=== PATIENT | male | born 1930 | race Caucasian/White ===

== ENCOUNTER 2016-12-19 21:09 | Emergency (ER) | payer BC ==
[~2016-12-19] VITALS: Ht 165.1 cm; Wt 55.3 kg
[~2016-12-19 21:09] MED LIST: CEPH500C2 PO; CHOL100010 PO; CRD4 PO; MULT-506 PO; VITACAP26 PO
[2016-12-19 21:15] VITALS: TEMP 36.2; Ht 165.1 cm; Wt 55.3 kg
[2016-12-19] MEDS ORDERED: DOXA-10 PO (21:39)
[2016-12-19] MEDS ORDERED: CHOL1CAP93 PO (21:39)
[2016-12-19] MEDS ORDERED: LISI10TA PO (21:39)
[2016-12-19] MEDS ORDERED: ASCO10003 PO (21:39)
[2016-12-19] MEDS ORDERED: DIPHTHERIA/TETANUS/PERTUSSIS 0.5 ML SYR/VIAL IM. ONE (21:45)
--- NOTE | 2016-12-19 21:49 | EMERGENCY ROOM VISIT NOTE ---
ED Visit Note First contact with patient: 21:20 Patient was seen by our PA/EXTRUDING PRESS ADJUSTER. I was involved in the patient's care and did evaluate the patient myself. I was involved in the care throughout the ER stay. The patient's dog bite has been addressed. He was felt stable for discharge. He is going to receive a tetanus booster.
[2016-12-19 22:15] VITALS: BP 177/90; PULSE 66; O2SAT 99
--- NOTE | 2016-12-21 | EMERGENCY ROOM VISIT NOTE ---
ED Visit Note First contact with patient: 21:20 Chief Complaint: Dog bit my right knee. History of Present Illness: Mr. Hernandez is an 86-year-old white male who ambulates into the ED complaining of a dog bite on the right knee. Patient reports approximately one to 2 hours ago he was taking his normal evening walk. He walked by a neighbor house and was bitten by their dog. He reports he checked in the dog's rabies immunizations are up-to-date. Patient does report he stopped bleeding prior to arrival at the hospital but has not washed the wound. Currently patient has no complaints including knee pain, skin pain, skin numbness/tingling. Review of Systems: As noted above in history of present illness. Past Medical History: Hypertension. Current Medications: Multivitamins, lisinopril, doxazosin. Allergies to Medications: Patient denies. Social History: Patient is currently retired; patient feels safe in his home environment; patient denies tobacco and alcohol use. Tetanus Immunization Status: Patient believes greater than 10 years. Physical Examination: Vital Signs: Date Time Temp Pulse Resp B/P (MAP) Pulse Ox O2 Delivery O2 Flow Rate FiO2 12/19/16 22:15 66 22 177/90 99 12/19/16 21:15 36.2 75 18 182/84 95 Room Air GENERAL: 86-year-old male in no acute distress, nontoxic-appearing, afebrile and hemodynamically stable. NEUROLOGICAL: Awake, alert and oriented to person, place and time. Answering questions appropriately and following commands. Normal gait. Good hand eye coordination. No focal motor sensory deficits. SKIN: Warm, dry and pink. Right Knee: Over the anterior aspect of the right knee patient has a small superficial puncture wound and abrasion as result of his dog bite. There is no active bleeding. RIGHT LOWER EXTREMITY: No gross bony deformity. Minimal tenderness in the area of his dog bite. There is no local erythema or edema. There is no ecchymosis. He does have full range of motion in flexion and extension of the knee against resistance. Do not appreciate any ligamentous laxity. Negative patellar apprehension test. Negative ballottement test. ED Course: Patient is assessed as noted above. Patient's medication list was reviewed. Patient's wound was cleansed with antibacterial soap and water and a sterile bacitracin dressing was placed over the wound. Patient was given an Adacel booster. Patient was educated about tonight's findings and instructed on his treatment plan; he verbalizes understanding and agreement with this plan. Clinical Impression: Dog bite right knee. Disposition: Patient discharged home in stable condition; prior to departure he was reassessed and subjectively reported pain free. Plan: Comfort measures, wound care, and signs of infection were discussed with the patient. Patient was found to be hypertensive and was encouraged to follow-up with his family physician for recheck and possible medication change. Patient was encouraged to follow-up with personal physician or return ED for signs of infection or any new/concerning symptoms.
== END 2016-12-19 22:16 | disposition home or self-care (01) ==
LOC: C.EDB 21:10 → C.EDD 22:16
DX: S81.051A Open bite, right knee, initial encounter (principal); W54.0XXA Bitten by dog, initial encounter; I10 Essential (primary) hypertension; Z23 Encounter for immunization

== ENCOUNTER 2017-05-24 18:05 | Emergency (ER) | payer BC ==
[~2017-05-24] VITALS: Ht 162.6 cm; Wt 57.0 kg
[~2017-05-24 18:05] MED LIST changes: +ASCO10003 PO; -CEPH500C2 PO; -CHOL100010 PO; +CHOL1CAP93 PO; -CRD4 PO; +DOXA-10 PO; +LISI10TA PO; -VITACAP26 PO
[2017-05-24 18:20] VITALS: TEMP 37.1; Ht 162.6 cm; Wt 57.0 kg
--- NOTE | 2017-05-24 20:37 | DIAGNOSTIC IMAGING REPORT ---
CHEST ONE VIEW PORTABLE CLINICAL HISTORY: shakes earlier COMPARISON STUDY: No previous studies for comparison. FINDINGS: Lung volumes are normal. No pneumothorax or pleural effusion is present. No consolidation is identified and there is no evidence of pulmonary edema. Heart is mildly enlarged. IMPRESSION: 1. No acute cardiopulmonary findings. 2. Mild cardiomegaly. Electronically signed by: Bert Burns M.D. 05/24/2017 8:35 PM Dictated Date/Time: 05/24/2017 8:35 PM
[2017-05-24 20:42] LABS: BASO % 0.1 %; BASO ABS # 0.01 K/uL (0-0.2); COMPLETE YES; EOS % 0.5 %; HEMATOCRIT 36.2 % (42-52); IG% 0.3 %; LYMPH % 8.1 %; LYMPH ABS # 0.76 K/uL (1.2-3.4); MEAN CELL VOLUME 94.3 fL (80-100); MEAN CORPUSCULAR HEMOGLOBIN 32.8 pg (25-34); MEAN CORPUSCULAR HGB CONC 34.8 g/dl (32-36); MEAN PLATELET VOLUME 10.3 fL (7.4-10.4); MONO % 7.3 %; NEUT % 83.7 %; PLATELET COUNT 142 K/uL (130-400); RED BLOOD COUNT 3.84 M/uL (4.7-6.1); WHITE BLOOD COUNT 9.33 K/uL (4.8-10.8)
[2017-05-24 20:43] LABS: URINE APPEARANCE CLEAR (CLEAR); URINE BILIRUBIN NEG (NEG); URINE COLOR DK YELLOW; URINE NITRITE POS (NEG); URINE PH 5.5 (4.5-7.5); URINE SPECIFIC GRAVITY 1.019 (1.000-1.030); UROBILINOGEN NEG (NEG); ZZUR CULT IF INDIC CLEAN CATCH YES
[2017-05-24 20:44] LABS: MANUAL MICROSCOPIC REQUIRED? NO; REVIEW REQ? YES
[2017-05-24 20:54] LABS: BUN/CREATININE RATIO 22.2 (10-20); CALCIUM 9.1 mg/dl (8.5-10.1); CREATININE 1.14 mg/dl (0.60-1.40); POTASSIUM 4.1 mmol/L (3.5-5.1)
--- NOTE | 2017-05-24 21:01 | EMERGENCY ROOM VISIT NOTE ---
History Report prepared by Phillip: Abhishek Quiroz Under the Supervision of: Dr. Grant Mujica M.D. First contact with patient: 19:28 Chief Complaint: OTHER COMPLAINT Stated Complaint: UNCONTROLABLE SHAKING History of Present Illness The patient is a 87 year old male who presents to the Emergency Room with complaints of constant violent shaking for a couple of hours that has resolved since coming to the ED. He adds that he "feels pretty good right now". Patient adds that he had a sore throat that has been solved. He states he has been sneezing with a runny nose. Patient denies a headache, fever, neck pain, abdominal pain, urinary burning, chest pain, passing out, trouble breathing, and cough. Patient denies having the flu shot done this year. Patient has not taken Tylenol or any recent antibiotics. Patient adds that he does not eat much. Source of History: patient Onset: couple hours ago Position: other (Global) Timing: constant Associated Symptoms: No fevers, No headache, No sorethroat, No cough, No chest pain, No abdominal pain Note: Patients adds he has a runny nose with sneezing. Review of Systems See HPI for pertinent positives & negatives. A total of 10 systems reviewed and were otherwise negative. Past Medical & Surgical Medical Problems: (1) HTN (hypertension) Family History No pertinent family history stated. Social History Smoking Status: Never Smoker Alcohol Use: occasionally Drug Use: none Marital Status: Housing Status: lives with family Current/Historical Medications Scheduled Ascorbic Acid (Vitamin C), 1,000 MG PO DAILY Cefdinir (Omnicef), 300 MG PO Q12H Cholecalciferol (D3-1000), 1,000 UNITS PO DAILY Doxazosin Mesylate (Doxazosin Mesylate), 8 MG PO DAILY Lisinopril (Prinivil), 10 MG PO DAILY Multivitamin (Multivitamin), 1 TAB PO DAILY Allergies Coded Allergies: No Known Allergies (Unverified , 05/24/17) Physical Exam Vital Signs Date Time Temp Pulse Resp B/P (MAP) Pulse Ox O2 Delivery O2 Flow Rate FiO2 05/24/17 21:46 78 18 122/74 96 Room Air 05/24/17 20:35 81 18 131/65 96 Room Air 05/24/17 18:20 37.1 95 20 193/77 96 Room Air Physical Exam GENERAL: Patient is elderly, well appearing, and in no acute distress. HEENT: No acute trauma, normocephalic atraumatic, mucous membranes moist, no nasal congestion, no scleral icterus. NECK: No stridor, no adenopathy, no meningismus, trachea is midline. LUNGS: No dyspnea. Clear to auscultation and equal bilaterally. No wheeze, no rhonchi. HEART: Regular rate and rhythm. No murmurs, rubs, gallops appreciated. ABDOMEN: Soft, nontender, bowel sounds positive, no masses appreciated, no peritonitis. BACK: No midline tenderness, no CVA tenderness EXTREMITIES: Normal motion all extremities, no cyanosis, no edema. NEUROLOGIC: Alert and oriented, no acute motor or sensory deficits, no focal weakness, cranial nerves grossly intact. SKIN: No rash, no jaundice, no diaphoresis. Medical Decision & Procedures ER Provider Diagnostic Interpretation: Radiology results and stated below per my review and radiologist interpretation: CHEST ONE VIEW PORTABLE CLINICAL HISTORY: shakes earlier COMPARISON STUDY: No previous studies for comparison. FINDINGS: Lung volumes are normal. No pneumothorax or pleural effusion is present. No consolidation is identified and there is no evidence of pulmonary edema. Heart is mildly enlarged. IMPRESSION: 1. No acute cardiopulmonary findings. 2. Mild cardiomegaly. Electronically signed by: Bert Burns M.D. 05/24/2017 8:35 PM Laboratory Results 05/24/17 20:23 Red Blood Count 3.84, Mean Corpuscular Volume 94.3, Mean Corpuscular Hemoglobin 32.8, Mean Corpuscular Hemoglobin Concent 34.8, Mean Platelet Volume 10.3, Neutrophils (%) (Auto) 83.7, Lymphocytes (%) (Auto) 8.1, Monocytes (%) (Auto) 7.3, Eosinophils (%) (Auto) 0.5, Basophils (%) (Auto) 0.1, Neutrophils # (Auto) 7.80, Lymphocytes # (Auto) 0.76, Monocytes # (Auto) 0.68, Eosinophils # (Auto) 0.05, Basophils # (Auto) 0.01 05/24/17 20:23 Test 05/24/17 20:23 05/24/17 20:30 White Blood Count 9.33 K/uL (4.8-10.8) Red Blood Count 3.84 M/uL (4.7-6.1) Hemoglobin 12.6 g/dL (14.0-18.0) Hematocrit 36.2 % (42-52) Mean Corpuscular Volume 94.3 fL (80-100) Mean Corpuscular Hemoglobin 32.8 pg (25-34) Mean Corpuscular Hemoglobin Concent 34.8 g/dl (32-36) Platelet Count 142 K/uL (130-400) Mean Platelet Volume 10.3 fL (7.4-10.4) Neutrophils (%) (Auto) 83.7 % Lymphocytes (%) (Auto) 8.1 % Monocytes (%) (Auto) 7.3 % Eosinophils (%) (Auto) 0.5 % Basophils (%) (Auto) 0.1 % Neutrophils # (Auto) 7.80 K/uL (1.4-6.5) Lymphocytes # (Auto) 0.76 K/uL (1.2-3.4) Monocytes # (Auto) 0.68 K/uL (0.11-0.59) Eosinophils # (Auto) 0.05 K/uL (0-0.5) Basophils # (Auto) 0.01 K/uL (0-0.2) RDW Standard Deviation 45.9 fL (36.4-46.3) RDW Coefficient of Variation 13.4 % (11.5-14.5) Immature Granulocyte % (Auto) 0.3 % Immature Granulocyte # (Auto) 0.03 K/uL (0.00-0.02) Urine Color DK YELLOW Urine Appearance CLEAR (CLEAR) Urine pH 5.5 (4.5-7.5) Urine Specific Roberts 1.019 (1.000-1.030) Urine Protein NEG (NEG) Urine Glucose (UA) NEG (NEG) Urine Ketones NEG (NEG) Urine Occult Blood NEG (NEG) Urine Nitrite POS (NEG) Urine Bilirubin NEG (NEG) Urine Urobilinogen NEG (NEG) Urine Leukocyte Esterase MODERATE (NEG) Urine WBC (Auto) >30 /hpf (0-5) Urine RBC (Auto) 0-4 /hpf (0-4) Urine Hyaline Casts (Auto) 1-5 /lpf (0-5) Urine Epithelial Cells (Auto) 5-10 /lpf (0-5) Urine Bacteria (Auto) 1+ (NEG) Urine Yeast (Auto) PRESENT (NONE PRSENT) Anion Gap 6.0 mmol/L (3-11) Est Creatinine Clear Calc Drug Dose 37.5 ml/min Estimated GFR () 67.1 Estimated GFR (Non- 57.9 BUN/Creatinine Ratio 22.2 (10-20) Calcium Level 9.1 mg/dl (8.5-10.1) Influenza Type A Antigen Neg for Influ A (NEG) Influenza Type B Antigen Neg for Influ B (NEG) Laboratory results as reviewed by me. Medications Administered Medications (Trade) Dose Ordered Sig/Sheila Route Start Time Stop Time Status Last Admin Dose Admin Ceftriaxone Sodium (Rocephin Inj) 1 gm NOW STAT IV 05/24/17 21:11 05/24/17 21:12 DC 05/24/17 21:22 1 GM ED Course 1929: The patient was evaluated in room C1. A complete history and physical exam was performed. 2109: Reevaluated the patient. Discussed results and discharge instructions. He verbalized understanding and agreement. The patient is ready for discharge. Medical Decision Differential: Sepsis, Infectious (UTI/Pneumonia/Meningitis/etc), Metabolic/ Electrolyte Abnormality, Cardiac, Hepatic, Endocrine, Toxicologic, Neurologic, amongst other pathologies entertained. 87 yr old male arrives for evaluation following chills/shaking earlier in the day though now feeling fine without complaints. He self caths himself. He notes some URI like symptoms. Flu negative as is CXR. Labs unremarkable. Vitals good (BP normalized while here). UA reveals UTI findings. Likely cause of symptoms. As self cath will treat as complicated despite work-up benign. Given IV rocephin and will continue with Omnicef BID x 1 week. Reviewed symptoms requiring RTED. Patient and family comfortable with home treatment. Stressed PCP follow up and repeat UA. Medication Reconcilliation Current Medication List: was personally reviewed by me Blood Pressure Screening Patient's blood pressure: Normal blood pressure Blood pressure disposition: Did not require urgent referral Impression Primary Impression: Urinary tract infection Additional Impression: Upper respiratory infection Scribe Attestation The scribe's documentation has been prepared under my direction and personally reviewed by me in its entirety. I confirm that the note above accurately reflects all work, treatment, procedures, and medical decision making performed by me. Departure Information Dispostion Home / Self-Care Prescriptions Cefdinir (Omnicef) 300 Mg Cap 300 MG PO Q12H for 7 Days, #14 CAP Prov: Grant Mujica M.D. 05/24/17 Referrals Blaise Timmons D.O. (PCP) Forms HOME CARE DOCUMENTATION FORM, IMPORTANT VISIT INFORMATION, WORK / SCHOOL INSTRUCTIONS Patient Instructions My [facility] Additional Instructions It is important to keep well hydrated. Return for evaluation if worsening weakness, chills, fevers, vomiting, pain or other concerns. We are always here to help. Please follow up with your primary care provider for repeat evaluation in the next few days. Problem Qualifiers
[2017-05-24] MEDS ORDERED: CEFTRIAXONE SOD INJ 1 GM ADDVIAL IV STA (21:11)
[2017-05-24] MEDS ORDERED: CEFD1CAP14 PO (21:13)
[2017-05-24 21:46] VITALS: BP 122/74; PULSE 78; O2SAT 96
--- NOTE | 2017-05-26 15:50 | Pharmacy Progress Note ---
ED Pharmacist Culture FollowUp Date of Service: May 26, 2017. Patient with CoN staph in the urine discharged on cefdinir for URI/UTI. Faxed culture results to patients PCP, and confirmed receipt of fax. Nurse also confirmed they would be prescribing bactrim X 7 days for the CoN staph.
== END 2017-05-24 21:58 | disposition home or self-care (01) ==
LOC: C.EDB 18:06 → C.EDC 21:58
DX: N39.0 Urinary tract infection, site not specified (principal); J06.9 Acute upper respiratory infection, unspecified; I10 Essential (primary) hypertension; Z79.899 Other long term (current) drug therapy